=== PATIENT | male | born 1965 | race Caucasian/White ===

== ENCOUNTER 2019-04-30 16:05 | Inpatient (IN) | payer BC, OTHER ==
[2019-04-30] MEDS: CEFEPIME 2GM/50 ML (PMX) 50 ML IVPB (16:49)
[2019-04-30] MEDS: SODIUM CHLORIDE 0.9% 1L BAG IV* (16:50)
[2019-04-30] MEDS: VANCOMYCIN 1 GM (PMX) 250 ML IVPB (18:13)
[2019-04-30] MEDS: morphine 4 MG/ML VIAL IV (19:13)
[2019-04-30] MEDS ORDERED: ONDANSETRON 4 MG INJ (19:18)
[2019-04-30] MEDS: ONDANSETRON 4 MG INJ IV (19:21)
[2019-04-30] MEDS ORDERED: NACL 0.9% 3 ML SYG IV (19:30)
[2019-04-30] MEDS ORDERED: morphine 2 MG INJ IV (19:30)
[2019-04-30] MEDS ORDERED: ONDANSETRON 4 MG INJ IV (20:00)
[2019-04-30] MEDS ORDERED: ACETAMINOPHEN 325 MG TAB PO (20:00)
[2019-04-30] MEDS: ACETAMINOPHEN 325 MG TAB PO (22:17)
[2019-04-30] MEDS: IBUPROFEN 600 MG TAB PO (22:52)
[2019-04-30] MEDS: SOD CHLORIDE 0.9% 1,000 ML IV (22:52)
[2019-05-01] MEDS: VANCOMYCIN 1.5 GM/NS 250 ML 250 ML IVPB ×2 (05:42→17:46)
[2019-05-01] MEDS: ACETAMINOPHEN 325 MG TAB PO (06:39)
[2019-05-01] MEDS: SOD CHLORIDE 0.9% 1,000 ML IV ×2 (08:30→15:07)
[2019-05-01] MEDS ORDERED: GLUCOSE GEL 15 GRAM TUBE PO ×2 (09:00)
[2019-05-01] MEDS ORDERED: GLUCAGON 1 MG INJ IM (09:00)
[2019-05-01] MEDS ORDERED: VANCOMYCIN IV PER PHARMACY XX (09:00)
[2019-05-01] MEDS ORDERED: GLUCOSE GEL 15 GRAM TUBE BUCCAL (09:00)
[2019-05-01] MEDS ORDERED: DEXTROSE 50% 50 ML SYRINGE IV ×2 (09:00)
[2019-05-01] MEDS: CEFEPIME 1GM/50 ML (PMX) 50 ML IVPB ×3 (09:03→21:46)
[2019-05-01] MEDS: DUTASTERIDE 0.5 MG CAP PO (09:58)
[2019-05-01] MEDS: LISINOPRIL 10 MG TAB PO (09:58)
[2019-05-01] MEDS: AMLODIPINE 5 MG TAB PO (09:58)
[2019-05-01] MEDS: CARISOPRODOL 350 MG TAB PO ×2 (10:12→22:11)
[2019-05-01] MEDS: ACCU-CHEK XX ×3 (11:30→21:44)
[2019-05-01] MEDS: HYDROCODONE/APAP (5/325) TAB PO (12:17)
[2019-05-01] MEDS: INSULIN ASPART [NOVOLOG] 3 ML PEN SC ×3 (12:34→20:40)
[2019-05-01] MEDS ORDERED: LIDOCAINE 1% (MDV) 20 ML INJ (13:15)
[2019-05-01] MEDS ORDERED: LIDOCAINE 1% (MPF) 5 ML VIAL INFIL (13:30)
[2019-05-01] MEDS: KETOROLAC 30 MG INJ IV ×2 (14:03→19:01)
[2019-05-01] MEDS: LIDOCAINE 1% (MDV) 20 ML INJ SC (14:33)
[2019-05-01] MEDS ORDERED: metFORMIN 500 MG TAB PO (18:05)
[2019-05-01] MEDS: INSULIN GLARGINE [LANTus] (100 UNITS/ML) SYG SC (20:40)
[2019-05-02] MEDS: KETOROLAC 30 MG INJ IV ×3 (01:40→13:42)
[2019-05-02] MEDS: ACCU-CHEK XX ×3 (01:43→11:30)
[2019-05-02] MEDS: SOD CHLORIDE 0.9% 1,000 ML IV (04:34)
[2019-05-02] MEDS: VANCOMYCIN 1.5 GM/NS 250 ML 250 ML IVPB (05:31)
[2019-05-02] MEDS: DUTASTERIDE 0.5 MG CAP PO (08:12)
[2019-05-02] MEDS: LISINOPRIL 10 MG TAB PO (08:12)
[2019-05-02] MEDS: AMLODIPINE 5 MG TAB PO (08:12)
[2019-05-02] MEDS: INSULIN ASPART [NOVOLOG] 3 ML PEN SC ×2 (08:16→11:54)
[2019-05-02] MEDS ORDERED: VANCOMYCIN 1.25 GM/NS 250 ML 250 ML IVPB (14:00)
== END 2019-05-02 14:23 | disposition home or self-care (01) | DRG 565 ==
LOC: E/R 16:05 → PP2 19:35
PROC: 0S9C3ZX Drainage of Right Knee Joint, Percutaneous Approach, Diagnostic (ICD-10-PCS; principal; 2019-05-01)
DX: M25.461 Effusion, right knee (principal); R65.10 Systemic inflammatory response syndrome (SIRS) of non-infectious origin without acute organ dysfunction; E11.9 Type 2 diabetes mellitus without complications; M25.561 Pain in right knee; I10 Essential (primary) hypertension; F17.200 Nicotine dependence, unspecified, uncomplicated; Z79.4 Long term (current) use of insulin
CPT/HCPCS: 36415; 71045; 73562; 73564; 80048; 80053; 80061; 80202; 81003; 82962; 83036; 83605; 83735; 84443; 84484; 85025; 85610; 85730; 86060; 87040-91; 87070; 87075; 87086; 87102; 87116; 89060; 93005; 96374; 96375; 99285-25